=== PATIENT | female | born 1960 | race Caucasian/White ===

== ENCOUNTER 2016-08-26 10:49 | Day surgery (SDC) | payer BC ==
--- NOTE | ~2016-08-26 | EGD ---
EGD REPORT [facility] [address] [place]. [address] NAME: PATRICA CONNELLY : 62 STATUS : REG [facility]#: [id number] AGE: 56 ADM/REG DATE : 08/26/16 MR#: [id number] REPORT SERV DATE: 08/26/16 DICTATED BY: JODI PRASAD DATE: 08/26/16 REPORT STATUS : Draft [facility]ANS[facility] BY: [facility] DATE: 08/26/16 [facility] Patient Name: Patrica Connelly Date of : 1960 Attending MD: COURTNEY PRASAD MD Procedure Date No Time: 08/26/2016 Procedure: Colonoscopy Indications: Screening for colorectal malignant neoplasm Referring MD: DASIA MCLAUGHLIN MD Medicines: See the Anesthesia note for documentation of the administered medications Complications: No immediate complications. Estimated blood loss: None. Procedure: Pre-Anesthesia Assessment: - ASA Grade Assessment: III - A patient with severe systemic disease. - Prior to the procedure, a History and Physical was performed, and patient medications and allergies were reviewed. The patient's tolerance of previous anesthesia was also reviewed. The risks and benefits of the procedure and the sedation options and risks were discussed with the patient. All questions were answered, and informed consent was obtained. Prior Anticoagulants: The patient has taken aspirin, last dose was day of procedure. After reviewing the risks and benefits, the patient was deemed in satisfactory condition to undergo the procedure. After I obtained informed consent, the scope was passed under direct vision. Throughout the procedure, the patient's blood pressure, pulse, and oxygen saturations were monitored continuously. The PCF [id number] was introduced through the anus and advanced to the ileocecal valve. The ileocecal valve, appendiceal orifice and terminal ileum were photographed. The entire colon was examined. The colonoscopy was performed without difficulty. The patient tolerated the procedure well. The quality of the bowel preparation was adequate. Findings: The perianal and digital rectal examinations were normal. A benign-appearing, intrinsic mild stenosis was found at the ileocecal valve and was non-traversed. Multiple small and large-mouthed diverticula were found in the sigmoid colon and in the descending colon. Non-bleeding internal hemorrhoids were found during retroflexion and were Grade I (internal hemorrhoids that do not prolapse). EGD REPORT [place] [id number] [facility] [place]. [address] NAME: PATRICA CONNELLY : [birth year] STATUS : REG [facility]#: [id number] AGE: 56 ADM/REG DATE : 08/26/16 MR#: [id number] REPORT SERV DATE: 08/26/16 DICTATED BY: JODI PRASAD DATE: 08/26/16 REPORT STATUS : Draft TRANSCRIBED BY: [employer] DATE: 08/26/16 No other significant abnormalities were identified in a careful examination of the remainder of the colon. Impression: - Stricture at the ileocecal valve. - Diverticulosis in the sigmoid colon and in the descending colon. - Non-bleeding internal hemorrhoids. Recommendation: - Patient has a contact number available for emergencies. The signs and symptoms of potential delayed complications were discussed with the patient. Return to normal activities tomorrow. Written discharge instructions were provided to the patient. - Regular diet. - Discharge patient to home. - Continue present medications. - Repeat colonoscopy in 10 years for surveillance. Procedure Code(s): --- Professional --- 88301, Colonoscopy, flexible, proximal to splenic flexure; diagnostic, with or without collection of specimen(s) by brushing or washing, with or without colon decompression (separate procedure) Diagnosis Code(s): --- Professional --- K56.69, Other intestinal obstruction K64.0, First degree hemorrhoids K57.30, Diverticulosis of large intestine without perforation or abscess without bleeding Z12.11, Encounter for screening for malignant neoplasm of colon CPT copyright 2013 [employer]. All rights reserved. The codes documented in this report are preliminary and upon film coater review may be revised to meet current compliance requirements. COURTNEY PRASAD MD 08/26/2016 2:21 PM This report has been signed electronically. Number of Addenda: 0 Note Initiated On: 08/26/2016 1:52 PM Scope Withdrawal Time 0 hours 7 minutes 38 seconds
[~2016-08-26 10:49] MED LIST: ASAB PO; NORV5 PO; OCUVITE PO
== END 2016-08-26 23:59 | disposition home or self-care (01) ==
LOC: DMU 10:49
PROVIDERS: Internal Medicine Gastroenterology
PROC: 0DJD8ZZ Inspection of Lower Intestinal Tract, Via Natural or Artificial Opening Endoscopic (ICD-10-PCS; principal; 2016-08-26 12:30)
DX: Z12.11 Encounter for screening for malignant neoplasm of colon (principal); K57.30 Diverticulosis of large intestine without perforation or abscess without bleeding; K56.69 Other intestinal obstruction; K64.0 First degree hemorrhoids; I10 Essential (primary) hypertension; E78.00 Pure hypercholesterolemia, unspecified; Z86.73 Personal history of transient ischemic attack (TIA), and cerebral infarction without residual deficits; Z88.2 Allergy status to sulfonamides; Z96.1 Presence of intraocular lens; Z98.41 Cataract extraction status, right eye; Z98.42 Cataract extraction status, left eye; Z98.890 Other specified postprocedural states